=== PATIENT | male | born 1940 | race Caucasian/White ===

== ENCOUNTER → 2018-03-15 | Outpatient (CLI) | payer MEDICARE, OTHER | LOC: M.RAD 08:39 | DX: J01.01 Acute recurrent maxillary sinusitis (principal) ==

== ENCOUNTER → 2020-05-16 | Outpatient (CLI) | payer MEDICARE, OTHER | LOC: M.RAD 10:32 | PROVIDERS: ATTEND Internal Medicine | DX: M16.11 Unilateral primary osteoarthritis, right hip (principal); M47.894 Other spondylosis, thoracic region; M25.551 Pain in right hip; M54.41 Lumbago with sciatica, right side; G89.29 Other chronic pain ==

== ENCOUNTER → 2020-06-03 | Outpatient (CLI) | payer MEDICARE, OTHER | LOC: M.RAD 15:09 | PROVIDERS: ATTEND Orthopaedic Surgery | DX: M19.011 Primary osteoarthritis, right shoulder (principal); M25.512 Pain in left shoulder; M85.88 Other specified disorders of bone density and structure, other site ==